=== PATIENT | male | born 1975 | race Caucasian/White ===

== ENCOUNTER 2016-06-29 13:09 | Emergency (ER) | payer OTHER ==
[~2016-06-29] VITALS: Ht 172.7 cm; Wt 71.7 kg
[~2016-06-29 13:09] MED LIST: AUGMENTIN 875875 MG PO; MOTRIN800 MG PO
--- NOTE | 2016-06-29 14:01 | RADIOLOGY REPORT ---
EXAMINATION: XR CHEST CLINICAL INFORMATION: Cough, upper respiratory symptoms. COMPARISON: Portable chest x-ray 02/28/2013. TECHNIQUE: 2 views of the chest were obtained. FINDINGS: The cardiomediastinal silhouette is unremarkable. The lungs and pleural spaces appear clear without evidence of congestion, consolidation, or significant appearing effusion or atelectasis. There is no evidence of pneumothorax or pulmonary edema. Included osseous structures demonstrate mild anterior endplate vertebral body spurring. IMPRESSION: No acute intrathoracic process is seen.
--- NOTE | 2016-06-29 14:39 | ED INFLUENZA/URI COMPLAINT ---
History of Present Illness General Chief Complaint: Upper Respiratory Sx/Fever Stated Complaint: SORE THROAT, COUGH, CONGESTION Source: patient Exam Limitations: no limitations Vital Signs & Intake/Output Vital Signs & Intake/Output Vital Signs Date Time Temp Pulse Resp B/P B/P Pulse O2 O2 Flow FiO2 Mean Ox Delivery Rate 06/29 1748 98.0 107 18 125/70 98 Room Air 06/29 1548 115 06/29 1511 97.0 133 20 117/81 94 Room Air 06/29 1434 Room Air 06/29 1314 98.1 118 18 138/89 96 Room Air Allergies Coded Allergies: NO KNOWN ALLERGIES (06/29/16) Reconcile Medications Albuterol Sulfate (Ventolin Hfa) 90 MCG HFA.AER.AD 2 PUF INH Q4-6 PRN PRN SHORTNESS OF BREATH Azithromycin (Zithromax) 500 MG TABLET 1 TAB PO DAILY BRONCHITIS Benzonatate (Tessalon Perle) 100 MG CAPSULE 1 CAP PO TID PRN COUGH Codeine Phosphate/Guaifenesi (Cheratussin AC Syrup) 10 MG-100 MG/5 ML LIQUID 10 ML PO QPM PRN COUGH Fluticasone Propionate (Flonase Allergy Relief) 50 MCG/ACTUATION SPRAY.SUSP 1 SPRAY MAGALY DAILY CONGESTION Methylprednisolone. (Medrol) 4 MG TAB.DS.PK 1 DP PO AD INFLAMMATION 6 on day 1 then reduce by one tablet daily until gone Triage Note: 40 Y/O MALE C/O URI SYMPTOMS SINCE 06/15/16. C/O "CHRONIC COUGH", NAUSEA, SORE THROAT AND NASAL CONGESTION. VOICE HOARSE. Triage Nurses Notes Reviewed? yes Onset: Gradual Duration: constant Timing: recent history Severity: moderate Severity Numbers: 5 HPI: Patient is a 40-year-old male who presents emergency room with a seven-day history of persistent nonproductive dry hacking cough with episodes of vomiting after coughing so much. Patient has associated symptoms of generalized weakness and fatigue sore throat and head and nasal congestion. Patient is an every day smoker Past History Travel History Traveled to [place] past 21 day No Medical History Any Pertinent Medical History? 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 No Review of Systems Review of Systems Constitutional: Reports: see HPI. EENTM: Reports: throat pain. Respiratory: Reports: see HPI, cough. Cardiovascular: Reports: no symptoms. GI: Reports: see HPI, vomiting. Genitourinary: Reports: no symptoms. Musculoskeletal: Reports: no symptoms. Skin: Reports: no symptoms. Neurological/Psychological: Reports: no symptoms. Hematologic/Endocrine: Reports: no symptoms. Immunologic/Allergic: Reports: no symptoms. All Other Systems: Reviewed and Negative Physical Exam Physical Exam General Appearance: no apparent distress Ears, Nose, Throat: normal ENT inspection, moist mucous membrane, hearing grossly normal Comments: Well-developed well-nourished person in no acute distress HEENT: Normal EENT exam, extraocular motion intact, no nystagmus. Pupils equally round and reactive to light and accommodation. Nose is atraumatic. External auditory canal and Tympanic membranes clear. Pharynx normal. No swelling or edema. Neck: Supple, no lymphadenopathy, normal range of motion without pain or tenderness Back: Nontender, no CVA tenderness Cardiovascular: Tachycardia no murmurs rubs or gallops, normal JVP Respiratory: Chest nontender. No respiratory distress.breath sounds clear to auscultation bilaterally Abdomen: Soft, nontender nondistended, no appreciable organomegaly. Normal bowel sounds. No ascites Extremity: No edema, no calf tenderness to palpation, normal and equal pulses. Neuro: Alert oriented x3, motor sensory normal, Skin: No appreciable rash on exposed skin, skin is warm and dry. Psych: Mood and affect is normal, memory and judgment is normal. Core Measures Severe Sepsis Present: No Septic Shock Present: No Progress Differential Diagnosis: influenza, meningitis, neutropenia, otitis, pneumonia, pharyngitis, sinusitis, pULMONARY EMBOLISM, MYOCARDIAL INFARCTION, ELECTROLYTE ABNORMALITY Plan of Care: Orders Procedure Date/time Status MAGNESIUM 06/29 1613 Complete TROPONIN LEVEL 06/29 1519 Complete D-DIMER 06/29 1519 Complete COMPREHENSIVE METABOLIC PANEL 06/29 1519 Complete CBC WITHOUT DIFFERENTIAL 06/29 1519 Complete EKG 06/29 1510 Active Laboratory Tests 06/29/16 1635: Magnesium 1.7 06/29/16 1530: Anion Gap 11, Estimated GFR > 60, BUN/Creatinine Ratio 5.7 L, Glucose 103 H, Calcium 8.3 L, Total Bilirubin 0.4, AST 17, ALT 20 L, Alkaline Phosphatase 90, Troponin I < 0.01, Total Protein 6.7, Albumin 3.5, Globulin 3.2, Albumin/ Globulin Ratio 1.1, D-Dimer < 200, CBC w Diff NO MAN DIFF REQ, RBC 4.16 L, MCV 95.9 H, MCH 32.7 H, RDW 16.3 H, MPV 7.1 L, Gran % 63.0, Lymphocytes % 25.6, Monocytes % 8.8, Eosinophils % 1.9, Basophils % 0.7, Absolute Granulocytes 3.8, Absolute Lymphocytes 1.6, Absolute Monocytes 0.5, Absolute Eosinophils 0.1, Absolute Basophils 0, PUBS MCHC 34.1 It was noted to me the patient did have sinus tachycardia on EKG and due to persistent tachycardia but work was established d-dimer essentially rules out pulmonary embolism patient had unremarkable blood works except for hypokalemia and which discussing with patient he states that he has been diagnosed with low potassium in the past . Patient was given by mouth potassium in the emergency room is strongly advised to continue with his outpatient regimen of potassium. Patient also is strongly advised to follow up with biological technician and to establish a biological technician due to persistent tachycardia and which previous emergency room visits he also had tachycardia Discussed disposition and plan with Dr. Phillips who agrees due to history of present illness and exam findings I suspect patient to have a progressively infection bronchitis (KAITLIN SALEH) Diagnostic Imaging: Viewed by Me: Radiology Read. Radiology Impression: no acute abnormality Initial ED EKG: normal intervals, normal p-waves, normal QRS complex, SINUS TACHYCARDIA 114 BPM Comments: PATIENT: KAYKAY ORTEGA PRESENT AGE: 40 PATIENT ACCOUNT NO: [id number] : 73 LOCATION: [facility] ORDERING PHYSICIAN: MALENA PHILLIPS MD SERVICE DATE: 06/29/16513 EXAM TYPE: RAD - XRY-CHEST XRAY, PA AND LATERAL EXAMINATION: XR CHEST CLINICAL INFORMATION: Cough, upper respiratory symptoms. COMPARISON: Portable chest x-ray 02/28/2013. TECHNIQUE: 2 views of the chest were obtained. FINDINGS: The cardiomediastinal silhouette is unremarkable. The lungs and pleural spaces appear clear without evidence of congestion, consolidation, or significant appearing effusion or atelectasis. There is no evidence of pneumothorax or pulmonary edema. Included osseous structures demonstrate mild anterior endplate vertebral body spurring. IMPRESSION: No acute intrathoracic process is seen. DICTATED BY: BETO VASQUEZ MD DATE/TIME DICTATED:06/29/161356 Departure Departure Disposition: HOME OR SELF CARE Condition: Stable Clinical Impression Primary Impression: Bronchitis Secondary Impressions: Hypokalemia, Tachycardia Referrals: Sandra PUCKETT MD, MD,SHAUNA (PCP/Family) Additional Instructions: As discussed begin the prescription of Medrol Dosepak for inflammation Tessalon Perles and Cheratussin for cough, Flonase for congestion, azithromycin for the full course, Ventolin for shortness of breath, and Medrol Dosepak for inflammation. prescription is waiting at [facility]. Continue your previously prescribed potassium. Please discontinue smoking. On Saturday follow- up with biological technician Dr. Puckett for your fast heart rate. If symptoms worsen return to emergency room. Departure Forms: Customer Survey General Discharge Information Prescriptions: Current Visit Scripts Codeine Phosphate/Guaifenesi (Cheratussin AC Syrup) 10 ML PO QPM PRN COUGH #100 ML Albuterol Sulfate (Ventolin Hfa) 2 PUF INH Q4-6 PRN PRN SHORTNESS OF BREATH #1 INHAL Methylprednisolone. (Medrol) 1 DP PO AD #1 DP 6 on day 1 then reduce by one tablet daily until gone Benzonatate (Tessalon Perle) 1 CAP PO TID PRN COUGH #21 CAP Azithromycin (Zithromax) 1 TAB PO DAILY #5 TAB Fluticasone Propionate (Flonase Allergy Relief) 1 SPRAY MAGALY DAILY #1 BOT
[2016-06-29] MEDS ORDERED: TESSALON PERLE100 M1 PO (15:07)
[2016-06-29] MEDS ORDERED: VENTOLIN HFA18 GM INH (15:07)
[2016-06-29] MEDS ORDERED: CHERATUSSIN AC118 M1 PO (15:07)
[2016-06-29] MEDS ORDERED: MEDROL4 M2 PO (15:07)
[2016-06-29] MEDS ORDERED: ZITHROMAX500 M2 PO (15:07)
[2016-06-29] MEDS ORDERED: FLONASE ALLERG9.9 ML NAS (15:07)
[2016-06-29 15:40] LABS: ABSOLUTE BASOPHIL COUNT 0 /CUMM (0.0-0.2); ABSOLUTE EOSINOPHIL COUNT 0.1 /CUMM (0.0-0.7); ABSOLUTE GRANULOCYTE CT 3.8 /CUMM (1.4-6.5); ABSOLUTE LYMPH COUNT 1.6 /CUMM (1.2-3.4); ABSOLUTE MONOCYTE COUNT 0.5 /CUMM (0.10-0.60); BASOPHIL % 0.7 % (0.0-2.0); EOSINOPHIL % 1.9 % (0-5); HEMATOCRIT 39.9 % (42-52); MEAN CORPUSCULAR HGB 32.7 PG (27.0-31.0); MEAN CORPUSCULAR HGB CONC 34.1 G/DL (33.0-37.0); MEAN CORPUSCULAR VOLUME 95.9 FL (80.0-94.0); MEAN PLATELET VOLUME 7.1 FL (7.4-10.4); PLATELET COUNT 287 /CUMM (130-400); RBC DISTRIBUTION WIDTH 16.3 % (11.5-14.5); RED BLOOD CELL CT 4.16 /CUMM (4.70-6.10); WHITE BLOOD CELL COUNT 6.1 /CUMM (4.8-10.8)
[2016-06-29 17:48] VITALS: BP 125/70
== END 2016-06-29 17:51 ==
LOC: ERH 13:09
PROVIDERS: Physician Assistant
DX: J40 Bronchitis, not specified as acute or chronic (principal); E87.6 Hypokalemia; R00.0 Tachycardia, unspecified; F17.210 Nicotine dependence, cigarettes, uncomplicated
CPT/HCPCS: 93005; 93010

== ENCOUNTER 2016-07-04 00:55 | Emergency (ER) | payer OTHER ==
[~2016-07-04] VITALS: Ht 172.7 cm; Wt 73.5 kg
[~2016-07-04 00:55] MED LIST changes: +CHERATUSSIN AC118 M1 PO; +FLONASE ALLERG9.9 ML NAS; +MEDROL4 M2 PO; +TESSALON PERLE100 M1 PO; +VENTOLIN HFA18 GM INH; +ZITHROMAX500 M2 PO
--- NOTE | 2016-07-04 01:05 | ED ANKLE/FOOT INJURY COMPLAINT ---
History of Present Illness General Chief Complaint: Laceration Procedure Stated Complaint: BIBA LAC TO LEFT FOOT Source: patient, old records, EMS Exam Limitations: intoxication Vital Signs & Intake/Output Vital Signs & Intake/Output Vital Signs Date Time Temp Pulse Resp B/P B/P Pulse O2 O2 Flow FiO2 Mean Ox Delivery Rate 07/04 0059 98.4 122 18 132/80 98 Room Air Allergies Coded Allergies: No Known Allergies (07/04/16) Reconcile Medications Albuterol Sulfate (Ventolin Hfa) 90 MCG HFA.AER.AD 2 PUF INH Q4-6 PRN PRN SHORTNESS OF BREATH Azithromycin (Zithromax) 500 MG TABLET 1 TAB PO DAILY BRONCHITIS Benzonatate (Tessalon Perle) 100 MG CAPSULE 1 CAP PO TID PRN COUGH Codeine Phosphate/Guaifenesi (Cheratussin AC Syrup) 10 MG-100 MG/5 ML LIQUID 10 ML PO QPM PRN COUGH Fluticasone Propionate (Flonase Allergy Relief) 50 MCG/ACTUATION SPRAY.SUSP 1 SPRAY MAGALY DAILY CONGESTION Methylprednisolone. (Medrol) 4 MG TAB.DS.PK 1 DP PO AD INFLAMMATION 6 on day 1 then reduce by one tablet daily until gone Triage Note: TRIAGE: PATIENT BIBA FROM HOME REPORTS S/P "PUT L FOOT THROUGH A COFFEE TABLE." PER EMS, 2 LACS TO L FOOT W/ BLEEDING CONTROLLED, PREHOSP DRESSINGS IN PLACE. 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 ALSO ADMITS TO +ETOH TONIGHT. Triage Nurses Notes Reviewed? yes HPI: Patient was drinking tonight with his friend. Patient then went home and fell asleep on the couch. Patient got up suddenly and accidentally put his left foot through the glass on the coffee table. Positive laceration. Patient is unsure when his last tetanus shot was. Patient denies any pain. There is no numbness or tingling. Bandage applied by EMS. Past History Travel History Traveled to [place] past 21 day No Medical History Any Pertinent Medical History? 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 No Review of Systems Review of Systems Constitutional: Reports: no symptoms. Respiratory: Reports: no symptoms. Cardiovascular: Reports: no symptoms. GI: Reports: no symptoms. Musculoskeletal: Reports: see HPI. Neurological/Psychological: Reports: no symptoms. Immunologic/Allergic: Reports: no symptoms. Physical Exam Physical Exam General Appearance: well developed/nourished, alert, awake, intoxicated Head: atraumatic, normal appearance Eyes: Bilateral: PERRL, EOMI. Ears, Nose, Throat: normal pharynx, normal ENT inspection Cardiovascular/Respiratory: normal breath sounds, normal peripheral pulses, regular rate/rhythm Leg/Knee/Thigh Left: normal range of motion, mass Leg/Knee/Thigh Right: normal range of motion, normal inspection Ankle Left: 2 CM LACERATION JUST BELOW THE MEDIAL ASPECT OF THE ANKLE. iRREGULAR, SUPERFICIAL Foot Left: normal inspection, normal range of motion Neuro/Vascular: normal motor function, normal sensation Progress Differential Diagnosis: LACERATION, QUESTION FOREIGN BODY Plan of Care: Orders Procedure Date/time Status XRY-FOOT COMPLETE, LEFT 07/05 103 Active Diagnostic Imaging: Viewed by Me: Radiology Read. Discussed w/RAD: Radiology Read. Radiology Impression: PATIENT: KAYKAY ORTEGA PRESENT AGE: 40 PATIENT ACCOUNT NO: [id number] : 73 LOCATION: [facility] ORDERING PHYSICIAN: NICHOLAS YING MD SERVICE DATE: 07/04/16 EXAM TYPE: RAD - XRY-FOOT COMPLETE, LEFT EXAMINATION: XR FOOT, LEFT CLINICAL INFORMATION: Foot through a glass coffee table, laceration COMPARISON: 08/17/2014 TECHNIQUE: 2 views of the left foot. FINDINGS: Osseous alignment is anatomic. No acute fracture is seen. No significant focal soft tissue abnormality or radiopaque foreign body is identified. IMPRESSION: No acute findings identified. DICTATED BY: MARSHALL BONILLA MD DATE/TIME DICTATED:07/04/16208 HAND II TUBE BENDER: TEVIN DATE/TIME TRANSCRIBED:07/04/16208 CONFIDENTIAL, DO NOT COPY WITHOUT APPROPRIATE AUTHORIZATION. <Electronically signed in Other Vendor System> SIGNED BY: MARSHALL BONILLA MD 07/04/16 0214 Departure Departure Disposition: HOME OR SELF CARE Condition: Stable Clinical Impression Primary Impression: Laceration Referrals: SHAUNA SHARPE MD (PCP/Family) Additional Instructions: Have sutures removed in 10 days. Return sooner if area turns red, hot to the touch, pus drainage or as needed. There is no sign of any glass remaining inside a cut however if a piece did remain then it could get infected. Signs of infection are noted above. Departure Forms: Customer Survey General Discharge Information Procedures Laceration/Wound Repair Laceration/Wound Repair: Wound Location: LEFT ANKLE Wound's Depth, Shape: irregular, superficial Wound Length (cm): 2 Wound Explored: clean, no foreign body removed Irrigated w/ Saline (ccs): 100 Betadine Prep? Yes Anesthesia: 1% lidocaine Volume Anesthetic (ccs): 2 Wound Repaired With: sutures Suture Size/Type: 4:0 Number of Sutures: 4 Layer Closure? No Tetanus Status: not up to date
--- NOTE | 2016-07-04 02:14 | RADIOLOGY REPORT ---
EXAMINATION: XR FOOT, LEFT CLINICAL INFORMATION: Foot through a glass coffee table, laceration COMPARISON: 08/17/2014 TECHNIQUE: 2 views of the left foot. FINDINGS: Osseous alignment is anatomic. No acute fracture is seen. No significant focal soft tissue abnormality or radiopaque foreign body is identified. IMPRESSION: No acute findings identified.
[2016-07-04 05:43] VITALS: BP 130/68
== END 2016-07-04 05:44 ==
LOC: ERH 00:55
DX: S91.312A Laceration without foreign body, left foot, initial encounter (principal); W25.XXXA Contact with sharp glass, initial encounter; Y92.009 Unspecified place in unspecified non-institutional (private) residence as the place of occurrence of the external cause; Y93.89 Activity, other specified
CPT/HCPCS: 73630-LT; 90471; 90714

== ENCOUNTER 2016-08-03 12:19 | Emergency (ER) | payer OTHER ==
[~2016-08-03] VITALS: Ht 172.7 cm; Wt 68.9 kg
[2016-08-03 12:26] VITALS: BP 118/85
--- NOTE | 2016-08-03 12:53 | ED ANIMAL BITE/WOUND CHECK ---
History of Present Illness General Chief Complaint: Suture Removal/Wound Recheck Stated Complaint: SUTURE REMOVAL Source: patient, old records Exam Limitations: no limitations Vital Signs & Intake/Output Vital Signs & Intake/Output Vital Signs Date Time Temp Pulse Resp B/P B/P Pulse O2 O2 Flow FiO2 Mean Ox Delivery Rate 08/03 1226 98.2 93 20 118/85 97 Room Air Allergies Coded Allergies: No Known Allergies (07/04/16) Reconcile Medications No Known Home Medications Triage Note: SUTURE REMOVAL RIGHT HEEL Triage Nurses Notes Reviewed? yes Onset: Abrupt Duration: week(s): (3) Timing: recent history Injury Environment: home Severity: mild No Modifying Factors: none HPI: 40-year-old male presents to the ER requesting suture removal. He had stitches placed in his left ankle 3 weeks ago. Denies any fever or chills. States that was scabbed earlier and didn't want come at that time to have it removed. Past History Travel History Traveled to [place] past 21 day No Medical History Any Pertinent Medical History? 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 No Review of Systems Review of Systems Constitutional: Denies: chills, fever. EENTM: Reports: no symptoms. Respiratory: Reports: no symptoms. Cardiovascular: Denies: chest pain. GI: Reports: no symptoms. Genitourinary: Reports: no symptoms. Musculoskeletal: Denies: joint pain, joint swelling, muscle pain, muscle stiffness. Skin: Reports: see HPI. Neurological/Psychological: Reports: no symptoms. Hematologic/Endocrine: Denies: bruising, polyuria. Immunologic/Allergic: Reports: no symptoms. All Other Systems: Reviewed and Negative Physical Exam Physical Exam General Appearance: well developed/nourished, mild distress Head: atraumatic Eyes: Bilateral: PERRL, EOMI. Neck: normal inspection, supple Extremities: normal range of motion, HEALED LEFT ANKLE LACERATION Neurologic/Psych: awake, alert, oriented x 3, normal mood/affect Skin: intact, normal color, warm/dry Progress Differential Diagnosis: WOUND CHECK Plan of Care: 4 sutures removed without incident. Wound appears healed. Departure Departure Time of Disposition: 1251 Disposition: HOME OR SELF CARE Condition: Stable Clinical Impression Primary Impression: Visit for suture removal Referrals: SHAUNA SHARPE MD (PCP/Family) Departure Forms: Customer Survey General Discharge Information Prescriptions: Current Visit Scripts No Known Home Medications
== END 2016-08-03 12:59 ==
LOC: ERH 12:19
DX: S91.012A Laceration without foreign body, left ankle, initial encounter (principal); Y92.9 Unspecified place or not applicable; Y93.9 Activity, unspecified
CPT/HCPCS: 99281